=== PATIENT | female | born 1995 | race Two or more races ===

== ENCOUNTER 2021-05-29 15:27 | Inpatient (IN) | payer MEDICAID ==
[~2021-05-29] VITALS: Ht 170.2 cm; Wt 79.1 kg
[2021-05-29] MEDS ORDERED: InsuLIN REG 1unit/0.01ml Soln (100units/ml) IV ONE ×2 (15:45→17:45)
[2021-05-29] MEDS ORDERED: SODIUM CHLORIDE 0.9% 1,000 ML IV ONE ×3 (15:45→18:15)
[2021-05-29 16:37] LABS: Basophils # (auto) 0.1 10 ^3/uL (0-0.2); Basophils % (auto) 0.9 % (0.0-2.0); Eosinophils # (auto) 0.1 10 ^3/uL (0-0.8); Eosinophils % (auto) 0.4 % (0.0-7.0); Hematocrit 42.4 % (36.0-46.0); Hemoglobin 13.9 g/dL (12.2-16.2); Lymphocytes # (auto) 2.3 10 ^3/uL (0.4-5.4); Lymphocytes % (auto) 15.8 % (10.0-50.0); Mean Corpuscular Hemoglobin 29.8 pg (28.0-32.0); Mean Corpuscular Hgb Conc. 32.7 g/dL (32.0-36.0); Mean Corpuscular Volume 91.2 fL (80.0-100.0); Monocytes # (auto) 0.8 10 ^3/uL (0-1.3); Monocytes % (auto) 5.3 % (0.0-12.0); Neutrophils # (auto) 11.2 10 ^3/uL (1.6-8.6); Neutrophils % (auto) 77.6 % (37.0-80.0); Red Blood Cells 4.66 10^6/uL (4.0-5.20); White Blood Cell 14.4 10^3/uL (4.4-10.8)
[2021-05-29 17:04] LABS: Albumin 3.2 g/dL (3.4-5.0); BUN/Creatinine Ratio 15.7; Bilirubin, Total 0.7 mg/dL (0.2-1.0); Calcium 7.8 mg/dL (8.5-10.1); Magnesium 2.5 mg/dL (1.6-2.6); Total Protein 7.6 g/dL (6.4-8.2)
[2021-05-29 17:30] LABS: Potassium 2.8 mmol/L (3.5-5.1)
[2021-05-29] MEDS ORDERED: POTASSIUM CHL 20MEQ/100ML 100 ML IV ONE (17:45)
[2021-05-29] MEDS ORDERED: InsuLIN R (HUMAN) 100 UNITS in SODIUM CHL 0.9% 99 ML IV SCH (17:45)
[2021-05-29] MEDS ORDERED: INSULIN LANTUS (GLARGINE) 1 /0.01ml (100units/ml) SC ONE (17:45)
[2021-05-29] MEDS ORDERED: DEXTROSE (50%) 50ML SYRG IV PRN ×2 (17:45→20:45)
[2021-05-29] MEDS: ACCU-CHEK COMFORT CURVE STRIP VI SCH ×4 (18:06→22:30)
[2021-05-29] MEDS ORDERED: NITROGLYCERIN 0.4 MG SL TAB SL PRN (21:00)
[2021-05-29] MEDS ORDERED: MORPHINE SULFATE INJECTION 2 MG/ML SYRG IV PRN (21:00)
[2021-05-29] MEDS ORDERED: ONDANSETRON HCL 4 MG/2 ML VIAL IV PRN (21:00)
[2021-05-29] MEDS: InsuLIN R (HUMAN) 100 UNITS in SODIUM CHL 0.9% 99 ML IV SCH ×2 (21:00→22:30)
[2021-05-29] MEDS: SODIUM CHLORIDE 0.9% 1,000 ML IV SCH (23:06)
[2021-05-30] MEDS: ACCU-CHEK COMFORT CURVE STRIP VI SCH ×11 (00:28→23:35)
[2021-05-30 04:01] LABS: BUN/Creatinine Ratio 12.8; Calcium 7.5 mg/dL (8.5-10.1)
[2021-05-30 04:09] LABS: Potassium 2.1 mmol/L (3.5-5.1)
[2021-05-30] MEDS: POTASSIUM CHL 20MEQ/100ML 100 ML IV SCH ×3 (06:30→09:18)
[2021-05-30] MEDS: SODIUM BICARBONATE 50ML VIAL 100 ML in SOD CHL 0.45% 1,000 ML IV SCH ×2 (08:10→20:03)
[2021-05-30] MEDS ORDERED: INSULIN LANTUS (GLARGINE) 1 /0.01ml (100units/ml) SC SCH (10:00)
[2021-05-30 12:31] LABS: Calcium 7.5 mg/dL (8.5-10.1)
[2021-05-30 12:33] LABS: BUN/Creatinine Ratio 8.7
[2021-05-30] MEDS: SODIUM CHLORIDE 0.9% 1,000 ML IV SCH ×3 (12:55→22:45)
[2021-05-30 13:06] LABS: Potassium 2.2 mmol/L (3.5-5.1)
[2021-05-30] MEDS ORDERED: POTASSIUM EFFERVESENT TAB 25 MEQ PO ONE (13:15)
[2021-05-30] MEDS: InsuLIN REG 1unit/0.01ml Soln (100units/ml) SC SCH ×3 (16:11→23:33)
[2021-05-30 17:17] LABS: BUN/Creatinine Ratio 10.6
[2021-05-30 18:11] LABS: Calcium 5.7 mg/dL (8.5-10.1); Potassium 2.2 mmol/L (3.5-5.1)
[2021-05-30] MEDS: INSULIN LANTUS (GLARGINE) 1 /0.01ml (100units/ml) SC SCH (23:35)
[2021-05-31] VITALS (7 sets, daily range): BP systolic 97–160; BP diastolic 53–83
[2021-05-31] MEDS: ACCU-CHEK COMFORT CURVE STRIP VI SCH ×6 (03:38→23:35)
[2021-05-31] MEDS: InsuLIN REG 1unit/0.01ml Soln (100units/ml) SC SCH ×6 (03:51→23:34)
[2021-05-31] MEDS: SODIUM CHLORIDE 0.9% 1,000 ML IV SCH ×4 (05:48→17:53)
[2021-05-31 06:49] LABS: Basophils # (auto) 0.1 10 ^3/uL (0-0.2); Eosinophils # (auto) 0.3 10 ^3/uL (0-0.8); Eosinophils % (auto) 2.5 % (0.0-7.0); Hematocrit 32.9 % (36.0-46.0); Hemoglobin 11.9 g/dL (12.2-16.2); Lymphocytes # (auto) 3.4 10 ^3/uL (0.4-5.4); Lymphocytes % (auto) 31.3 % (10.0-50.0); Mean Corpuscular Hemoglobin 30.7 pg (28.0-32.0); Mean Corpuscular Hgb Conc. 36.2 g/dL (32.0-36.0); Mean Corpuscular Volume 84.8 fL (80.0-100.0); Monocytes # (auto) 1.2 10 ^3/uL (0-1.3); Monocytes % (auto) 11.1 % (0.0-12.0); Neutrophils # (auto) 5.8 10 ^3/uL (1.6-8.6); Neutrophils % (auto) 54.1 % (37.0-80.0); Nucleated Red Blood Cells % 0.1 %; Red Blood Cells 3.88 10^6/uL (4.0-5.20); Red Cell Distribution Width 12.9 % (11.8-14.3); White Blood Cell 10.7 10^3/uL (4.4-10.8)
[2021-05-31 07:06] LABS: Albumin 2.5 g/dL (3.4-5.0); Magnesium 2.1 mg/dL (1.6-2.6)
[2021-05-31 07:11] LABS: BUN/Creatinine Ratio 10.9; Bilirubin, Total 1.4 mg/dL (0.2-1.0); Total Protein 6.2 g/dL (6.4-8.2)
[2021-05-31 08:08] LABS: Potassium 1.7 mmol/L (3.5-5.1)
[2021-05-31] MEDS ORDERED: POTASSIUM CHL 20 Meq TABLET PO ONE (09:30)
[2021-05-31] MEDS ORDERED: POTASSIUM CHL 20MEQ/100ML 100 ML IV ONE (09:45)
[2021-05-31] MEDS: INSULIN LANTUS (GLARGINE) 1 /0.01ml (100units/ml) SC SCH ×2 (10:36→21:34)
[2021-06-01] VITALS (7 sets, daily range): BP systolic 104–118; BP diastolic 62–70
[2021-06-01] MEDS: InsuLIN REG 1unit/0.01ml Soln (100units/ml) SC SCH ×5 (04:00→18:52)
[2021-06-01] MEDS: ACCU-CHEK COMFORT CURVE STRIP VI SCH ×4 (04:02→18:50)
[2021-06-01] MEDS: SODIUM CHLORIDE 0.9% 1,000 ML IV SCH (05:56)
[2021-06-01 07:25] LABS: BUN/Creatinine Ratio 18.8; Calcium 8.1 mg/dL (8.5-10.1); Magnesium 2.5 mg/dL (1.6-2.6)
[2021-06-01 07:42] LABS: Potassium 2.3 mmol/L (3.5-5.1)
[2021-06-01] MEDS ORDERED: POTASSIUM CHL 20 Meq TABLET PO ONE ×3 (09:30→16:15)
[2021-06-01] MEDS ORDERED: POTASSIUM CHL 20MEQ/100ML 100 ML IV ONE (09:45)
[2021-06-01] MEDS ORDERED: SODIUM CHLORIDE 0.9% 1,000 ML IV SCH (09:45)
[2021-06-01] MEDS: INSULIN LANTUS (GLARGINE) 1 /0.01ml (100units/ml) SC SCH (10:22)
[2021-06-01] MEDS ORDERED: INSLANTI SC (11:00)
[2021-06-01] MEDS: SOD CHL 0.9%/ KCL 20MEQ 1,000 ML IV SCH (11:51)
[2021-06-01] MEDS: metFORMIN HYDROCHLORIDE 500 MG TAB PO SCH (18:58)
[2021-06-01] MEDS ORDERED: INSULIN LANTUS (GLARGINE) 1 /0.01ml (100units/ml) SC SCH (22:00)
[2021-06-02] MEDS: ACCU-CHEK COMFORT CURVE STRIP VI SCH ×3 (00:39→11:50)
[2021-06-02] MEDS: InsuLIN REG 1unit/0.01ml Soln (100units/ml) SC SCH ×3 (00:46→11:51)
[2021-06-02] MEDS: SOD CHL 0.9%/ KCL 20MEQ 1,000 ML IV SCH (04:33)
[2021-06-02 05:00] VITALS: BP 96/61
[2021-06-02 07:29] LABS: Calcium 7.8 mg/dL (8.5-10.1)
[2021-06-02 07:31] LABS: BUN/Creatinine Ratio 24.1
[2021-06-02 08:58] VITALS: BP 103/58
[2021-06-02] MEDS: metFORMIN HYDROCHLORIDE 500 MG TAB PO SCH (09:28)
[2021-06-02] MEDS: POTASSIUM CHL 20 Meq TABLET PO SCH ×2 (09:29→11:00)
[2021-06-02 12:47] VITALS: BP 118/66
[2021-06-02] MEDS ORDERED: POTASSIUM CHL 20 Meq TABLET PO ONE (15:15)
== END 2021-06-02 16:22 | disposition home or self-care (01) | DRG 420 ==
LOC: EDBD 15:27 → ER 15:27 → TELE 20:48 → TELE-WESTW 22:08
PROVIDERS: ADMIT Nurse Practitioner; ATTEND Family Medicine
DX: E11.10 Type 2 diabetes mellitus with ketoacidosis without coma (principal); R65.10 Systemic inflammatory response syndrome (SIRS) of non-infectious origin without acute organ dysfunction; E87.6 Hypokalemia; E86.0 Dehydration; R00.0 Tachycardia, unspecified; F12.90 Cannabis use, unspecified, uncomplicated; F17.210 Nicotine dependence, cigarettes, uncomplicated; Z20.822 Contact with and (suspected) exposure to COVID-19; J45.909 Unspecified asthma, uncomplicated; Z82.49 Family history of ischemic heart disease and other diseases of the circulatory system; Z83.3 Family history of diabetes mellitus
CPT/HCPCS: 36415; 36600; 71045; 80048; 80053; 80061; 82010; 82805; 82962; 83036; 83735; 83930; 84132; 84443; 85025; 87426; 96361; 96365; 99291; G0378; J1815; J3480

== ENCOUNTER 2023-11-07 11:35 | Emergency (ER) | payer MEDICAID ==
[~2023-11-07] VITALS: Ht 165.1 cm; Wt 83.2 kg
[~2023-11-07 11:35] MED LIST: INSLANTI SC
[2023-11-07 13:04] LABS: Basophils # (auto) 0.1 10 ^3/uL (0-0.2); Eosinophils # (auto) 0.2 10 ^3/uL (0-0.8); Eosinophils % (auto) 1.3 % (0.0-7.0); Hematocrit 38.8 % (36.0-46.0); Hemoglobin 12.9 g/dL (12.2-16.2); Lymphocytes % (auto) 33.3 % (10.0-50.0); Mean Corpuscular Hemoglobin 29.5 pg (28.0-32.0); Mean Corpuscular Hgb Conc. 33.2 g/dL (32.0-36.0); Mean Corpuscular Volume 88.8 fL (80.0-100.0); Monocytes # (auto) 0.8 10 ^3/uL (0-1.3); Monocytes % (auto) 6.5 % (0.0-12.0); Neutrophils % (auto) 57.9 % (37.0-80.0); Red Blood Cells 4.37 10^6/uL (4.0-5.20); Red Cell Distribution Width 12.3 % (11.8-14.3); White Blood Cell 12.1 10^3/uL (4.4-10.8)
[2023-11-07 13:19] LABS: Alanine Aminotransferase 11 U/L (7-40); Albumin 4.4 g/dL (3.2-4.8); Alkaline Phosphatase 74 U/L (46-116); Anion Gap 7 (5-15); Aspartate Aminotransferase < 8 U/L (13-40); BUN/Creatinine Ratio 16.7 (10.0-20.0); Bilirubin, Total 0.4 mg/dL (0.2-1.0); Blood Urea Nitrogen 12 mg/dL (9-23); Calcium 9.9 mg/dL (8.7-10.4); Carbon Dioxide 27 mmol/L (20-30); Chloride 103 mmol/L (98-107); Glucose 201 mg/dL (74-106); Lipase 37 U/L (12-53); Magnesium 1.8 mg/dL (1.6-2.6); Potassium 4.4 mmol/L (3.5-5.1); Sodium 137 mmol/L (136-145); Total Protein 7.2 g/dL (5.7-8.2)
[2023-11-07] MEDS: ONDANSETRON ODT 4 MG TAB PO ONE (15:42)
[2023-11-07] MEDS: MECLIZINE HCL 25 MG TAB PO ONE (15:43)
[2023-11-07] MEDS: SODIUM CHLORIDE 0.9% 1,000 ML IV ONE (15:45)
[2023-11-07 16:00] VITALS: TEMP 97.7
[2023-11-07 17:10] LABS: Urine Bacteria MOD /hpf (None Seen); Urine Blood Negative /uL (Negative); Urine Clarity Turbid (Clear); Urine Color Light-Yellow (Yellow); Urine Protein, UAD TRACE (Negative); Urine Specific Gravity 1.028 (1.001-1.035); Urine Urobilinogen Normal (Negative); Urine WBC 2 /hpf (0 - 5); Urine pH 6.5 (5.0-9.0)
[2023-11-07 17:18] LABS: Amphetamine Screen, Urine Neg (NEGATIVE); Barbiturate Scree,Urine Neg (NEGATIVE); Benzodiazephine Screen, Urine Neg (NEGATIVE); Cannabinoid Screen, Urine Neg (NEGATIVE); Cocaine Screen, Urine Neg (NEGATIVE); Opiate Scree,Urine Neg (NEGATIVE); Phencyclidine Screen, Urine Neg (NEGATIVE)
[2023-11-07] MEDS: diazePAM 5 MG TAB PO ONE (18:06)
[2023-11-07] MEDS: cefTRIAXone 1GM/50ML D5W 50 ML IV ONE (18:18)
[2023-11-07] MEDS ORDERED: MECL1TAB42 PO (20:22)
[2023-11-07] MEDS ORDERED: DIAZ-680 OR (20:22)
[2023-11-07 20:39] VITALS: BP 133/88; PULSE 81; RESP 20; O2SAT 97
== END 2023-11-07 20:47 | disposition home or self-care (01) ==
LOC: ER 11:35
DX: R42 Dizziness and giddiness (principal); E11.9 Type 2 diabetes mellitus without complications; J45.909 Unspecified asthma, uncomplicated; Z98.890 Other specified postprocedural states; Z87.891 Personal history of nicotine dependence; Z79.899 Other long term (current) drug therapy
CPT/HCPCS: 36415; 71045; 80053; 80307; 81001; 81025; 82962; 83605; 83690; 83735; 84484; 85025; 93005; 96361; 96365; 99285; J0696; J7030; J8597; Q0162